=== PATIENT | female | born 1945 | race Caucasian/White ===

== ENCOUNTER 2017-04-29 09:58 | Day surgery (SDC) ==
[2017-04-29 12:30] VITALS: BP 144/79; TEMP 98.2
--- NOTE | 2017-04-30 08:54 | OP ---
PROCEDURE: COLONOSCOPY TO THE CECUM WITH COLD SNARE POLYPECTOMY. ENDOSCOPIST: Huseyin AMANDA M.D. INDICATION: COLOGUARD POSITIVE STOOL, SCREENING EXAM INSTRUMENT: Sandman [id number]. DATE OF LAST EXAM: 10 years ago PROCEDURE: The patient was positioned for colonoscopy. The digital rectal exam was negative. The colonoscope was inserted through the anus and advanced to the cecum. The cecum was identified using the ileocecal valve and the appendiceal orifice as landmarks. The scope was slowly withdrawn through an adequately prepped colon. Small polyp in the ascending colon removed using cold snare polypectomy. No other large polyp, mass or lesion are noted. Hemorrhoids are seen on retroflex exam. The exam was otherwise unremarkable. The patient tolerated the procedure without immediate complication. Withdrawal time 9 minutes and 12 seconds. MTDD
== END 2017-04-29 12:43 | disposition home or self-care (01) ==
LOC: SURG 09:58
PROVIDERS: ATTEND Internal Medicine Gastroenterology
DX: Z12.11 Encounter for screening for malignant neoplasm of colon (principal); D12.2 Benign neoplasm of ascending colon; K64.9 Unspecified hemorrhoids; R19.5 Other fecal abnormalities